=== PATIENT | male | born 1975 | race Caucasian/White ===

== ENCOUNTER 2022-02-28 08:26 | Outpatient (CLI) | payer OTHER, SELFPAY ==
--- NOTE | ~2022-02-28 | XR_ITS ---
XR shoulder LT min 2V DATE: 02/28/2022 08:43 INDICATION: Left shoulder pain. No injury. TECHNIQUE: 4 views COMPARISON: None FINDINGS: No fracture or dislocation, periosteal reaction or bone destruction or abnormal soft tissue calcification. Normal alignment at the acromioclavicular and glenohumeral joints. IMPRESSION: Negative Reviewed, dictated and finalized at location B. IMPRESSION: Negative
== END 2022-02-28 08:27 | disposition home or self-care (01) ==
PROVIDERS: PCP Internal Medicine; Visit Provider Internal Medicine
DX: M25.512 Pain in left shoulder (principal)
CPT/HCPCS: 73030

== ENCOUNTER 2023-12-30 09:34 | Outpatient (CLI) | payer OTHER, SELFPAY ==
[2024-01-26 18:25] VITALS: BMI 33.5
--- NOTE | 2024-01-26 18:25 | WPDSLEEPSTUD ---
Sleep Study Date of Study: 12/30/23 Ordering Provider: Forrest Smith APRN Interpreting Physician: Karlene Haas DO Sleep Study Type: Polysomnogram Height: 1.8 m Weight: 108.862 kg Body Mass Index: 33.5 Neck Circumference (inches): 18 Hendricks: 6 Reason for Sleep Study Snoring, morning headaches Sleep History The patient is a 48-year-old male that had a sleep study ordered by his primary care for evaluation of sleep apnea. The patient denies awakening from sleep short of breath. He denies awakening at night with heartburn, belching or cough. He frequently snores and is frequently loud enough that others complain. He rarely has trouble sleeping when he has a cold. He denies waking up gasping for air throughout the night. He occasionally has breathing problems at night observed by himself or others. He rarely sweats excessively at night. He denies having heart palpitations or irregular heartbeats during the night. He denies falling asleep during the day and while driving. He denies sleep paralysis, cataplexy and hypnagogic / hypnopompic hallucinations. He occasionally has trouble at school or work due to sleepiness. He denies feeling afraid of going to sleep. He denies having nightmares. He occasionally remembers his dreams. He rarely feels sad, depressed or anxious. He rarely has muscular tension. He occasionally notices parts of his body jerk. He occasionally kicks during the night. He denies having crawling and aching feelings in his legs and denies having leg pain during the night. He denies grinding his teeth during sleep and denies awakening with morning jaw pain. He denies being bothered by pain during the day and denies being awakened by pain during the night. He rarely wakes up feeling stiff in the morning. He rarely wakes up with sore or achy muscles. He rarely wakes up with pain in the neck, spine and other joints. He goes to bed at 9:30 p.m. on weekdays and between 10 to 10:30 p.m. on the weekends. He is able to fall asleep relatively quickly most nights. He wakes up once at most to urinate and is able to fall back asleep within a few minutes. He wakes up at 5:00 a.m. on weekdays and at 7:00 a.m. on the weekends. He typically gets 6.5-7 hours of sleep per night. He does not stay in bed after waking up in the morning. He currently lives with his and adult child. He denies consuming any caffeinated beverages within 2 hours of bedtime. He denies engaging in physical exercise before bedtime. He will watch television before falling asleep. He denies taking naps in the afternoon or the evening. He consumes 3 caffeinated beverages per day. He consumes 1 alcoholic beverage per day. He denies tobacco and recreational drug use. [facility]LY [facility] Past Medical History Medical History Asthma History of COVID-19 History of gastric ulcer Family History Family History Mother Hypertension Father Hypertension Family history of diabetes mellitus in first degree relative History of CVA (cerebrovascular accident) Sibling Asthma Diabetes mellitus Hypertension Grandparent Cancer Hypertension Grandparent Cancer Hypertension Heart problem Social History Social History Smoking status: Never smoker Second hand tobacco smoke exposure: Yes Alcohol intake: current Drinks per week: 2 Substance use: never Substance use type: does not use Lack of Transportation: No Lack of Food: Never True Current Housing: I Have Housing Concerned About Future Housing: No Difficulty Paying Gas/Electric Bills: No Difficulty Paying for Meds: No Currently Unemployed: No Education: Bachelor's Degree Difficulty w/ Childcare or Family Care: No Living arrangements: with family Occupation/Education: occupation Gender ident
== END 2023-12-31 06:02 | disposition home or self-care (01) ==
LOC: ANHCSM 09:35
PROVIDERS: PCP Nurse Practitioner; Visit Provider Nurse Practitioner
DX: G47.10 Hypersomnia, unspecified (principal); G47.33 Obstructive sleep apnea (adult) (pediatric)
CPT/HCPCS: 95810

== ENCOUNTER 2025-06-23 01:56 | Day surgery (SDC) | payer OTHER, SELFPAY ==
[2025-06-01 14:42] VITALS: BMI 34.1
--- OUTSIDE RECORDS SUMMARY | 2025-06-23 01:58 | XMS_ITS | Clinical Summary ---
Author Organization 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
[2025-06-23 08:08] VITALS: BP 144/92; PULSE 87; RESP 20; TEMP 36.2; O2SAT 100
[2025-06-23] MEDS: LACTATED RINGERS 1,000 ML 150 ML IV CONT (08:29)
--- NOTE | 2025-06-23 08:53 | WPDANESEPPF ---
Anes - Initial Pre Proc Eval Procedure: Operation Date: 06/23/25 09:30 Proposed Procedures p Screening Colonoscopy - Terry Anaya MD Date/Time: 06/23/25 08:53 Surgeon: Terry Anaya MD Pre Op Diagnosis: screening Patient Data Age: 49 Gender: M Height: 1.8 m Weight: 109 kg Last Vital Signs Temp 97.1 F L 06/23/25 08:08 Pulse 87 06/23/25 08:08 Resp 20 06/23/25 08:08 BP 144/92 H 06/23/25 08:08 Pulse Ox 100 06/23/25 08:08 O2 Del Method Room Air 06/23/25 08:08 Allergies Allergy/AdvReac Type Severity Reaction Status Date / Time cefuroxime Allergy Severe Rash Verified 06/23/25 08:06 Home Medications ?Medication ?Instructions ?Recorded ?Confirmed ?Type multivitamin (Daily Multi-Vitamin 1 tablet PO DAILY 02/26/21 06/23/25 History tablet) omega 5-hrx-rqu-fish oil 1,200 mg 1 cap PO DAILY 02/26/21 06/23/25 History (144 mg-216 mg) capsule (Fish Oil) Vitamin C + Zinc PO 10/25/24 10/25/24 History cetirizine 10 mg tablet 10 mg PO DAILY 10/25/24 06/23/25 History sodium sul 1.479 gram-potas ch See Rx Instructions PO PER PKG DIR 04/19/25 06/23/25 Rx 0.188 gram-magnes sul 0.225 gram #24 tabs tablet (Sutab) sodium sul 1.479 gram-potas ch See Rx Instructions PO PER PKG DIR 06/09/25 06/23/25 Rx 0.188 gram-magnes sul 0.225 gram #24 tabs tablet (Sutab) Patient hx anesthesia problems: none Family hx anesthesia problems: none Results Review: All pre-operative results and documents have been reviewed as part of the pre-operative evaluation. [facility] Past Medical History Medical History History of gastric ulcer Asthma History of COVID-19 Family History Family History Mother Hypertension Father Hypertension Family history of diabetes mellitus in first degree relative History of CVA (cerebrovascular accident) Sibling Asthma Diabetes mellitus Hypertension Grandparent Cancer Hypertension Heart problem Social History Social History Smoking status: Never smoker Second hand tobacco smoke exposure: Yes Alcohol intake: current Drinks per week: 3 Substance use: never Substance use type: does not use Lack of Transportation: No Lack of Food: Never True Current Housing: I Have Housing Concerned About Future Housing: No Difficulty Paying Gas/Electric Bills: No Difficulty Paying for Meds: No Currently Unemployed: No Education: Bachelor's Degree Difficulty w/ Childcare or Family Care: No Living arrangements: with family Occupation/Education: occupation 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 Gender identity (if verbalized by the patient): Male Sexual Orientation (if Verbalized by the Patient): Straight or Heterosexual Spiritual care concerns: No Anes - Eval Final PreProcedure Day of Procedure 06/23/25 08:53 Patient weight: obese Lungs: normal air movement Airway: Mallampati scale class II Neurological: alert and oriented Last oral intake: >/= 8 hours ASA classification: II Emergent: no Anesthetic plan: proceed Anesthesia type and monitoring: general GIVS and standard monitoring Results Review: All pre-operative results and documents have been reviewed as part of the pre-operative evaluation. ROBERT overall good functional status, no cp or sob w 1-2 fos. Informed Consent: The patient's anesthetic plan and its attendant risks and benefits were discussed with the patient/family/POA. Questions were solicited and answers provided to the satisfaction of the patient/family/POA.
--- NOTE | 2025-06-23 09:10 | PM.IMHP2 ---
H&P: HPI History of Present Illness Date/Time: 06/23/25 09:10 Chief Complaint: Screening colonoscopy Narrative: This is the patient's first colonoscopy. There are no GI symptoms and there is no family history of colorectal cancer. Review of Systems Review of Systems: All systems reviewed & are unremarkable except as noted in HPI and below PMFSH Past Medical History Medical History History of gastric ulcer Asthma History of COVID-19 Family History Family History Mother Hypertension Father Hypertension Family history of diabetes mellitus in first degree relative History of CVA (cerebrovascular accident) Sibling Asthma Diabetes mellitus Hypertension Grandparent Cancer Hypertension Heart problem Social History Social History Smoking status: Never smoker Second hand tobacco smoke exposure: Yes Alcohol intake: current Drinks per week: 3 Substance use: never Substance use type: does not use Lack of Transportation: No Lack of Food: Never True Current Housing: I Have Housing Concerned About Future Housing: No Difficulty Paying Gas/Electric Bills: No Difficulty Paying for Meds: No Currently Unemployed: No Education: Bachelor's Degree Difficulty w/ Childcare or Family Care: No Living arrangements: with family Occupation/Education: occupation 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 Gender identity (if verbalized by the patient): Male Sexual Orientation (if Verbalized by the Patient): Straight or Heterosexual Spiritual care concerns: No Meds Home Medications and Allergies Home Medications ?Medication ?Instructions ?Recorded ?Confirmed ?Type multivitamin (Daily Multi-Vitamin 1 tablet PO DAILY 02/26/21 06/23/25 History tablet) omega 9-ytk-hbw-fish oil 1,200 mg 1 cap PO DAILY 02/26/21 06/23/25 History (144 mg-216 mg) capsule (Fish Oil) Vitamin C + Zinc PO 10/25/24 10/25/24 History cetirizine 10 mg tablet 10 mg PO DAILY 10/25/24 06/23/25 History sodium sul 1.479 gram-potas ch See Rx Instructions PO PER PKG DIR 04/19/25 06/23/25 Rx 0.188 gram-magnes sul 0.225 gram #24 tabs tablet (Sutab) sodium sul 1.479 gram-potas ch See Rx Instructions PO PER PKG DIR 06/09/25 06/23/25 Rx 0.188 gram-magnes sul 0.225 gram #24 tabs tablet (Sutab) Allergies Allergy/AdvReac Type Severity Reaction Status Date / Time cefuroxime Allergy Severe Rash Verified 06/23/25 08:06 Vital Signs Vital Signs - 24 hr 06/23/25 08:08 Temperature 97.1 F L Pulse Rate 87 Respiratory Rate 20 Blood Pressure 144/92 H Pulse Oximetry 100 Oxygen Delivery Room Air Exam Const: General: cooperative and healthy appearing Resp: Effort & Inspection: normal respiratory effort and able to speak in complete sentences Auscultation: clear to auscultation bilaterally Cardio: Rate: regular rate Rhythm: regular rhythm GI: Inspection: normal to inspection GI Palp: No No hepatosplenomegaly present Auscultation: normal bowel sounds Rectal Exam: deferred Skin: General skin exam: normal color Psych: Appearance: grossly normal Mental Status: mental status grossly normal Assessment and Plan Assessment and plan (1) Screening for colon cancer: Code(s): Z12.11 - Encounter for screening for malignant neoplasm of colon Status: Acute Assessment and Plan: The patient is deemed a good candidate for the procedure. Consent signed. Will proceed. Prior Studies I have reviewed the following patient records and this information was taken into consideration when formulating the assessment and plan.: previous labs, previous ER visits, previous hospitalizations and previous clinic visits
[2025-06-23 09:26] VITALS: BP 117/78; PULSE 68; RESP 22; O2SAT 99
[2025-06-23 09:36] VITALS: BP 121/85; PULSE 63; RESP 17; O2SAT 98
[2025-06-23 09:46] VITALS: BP 140/90; PULSE 60; RESP 22; O2SAT 99
== END 2025-06-23 09:50 | disposition home or self-care (01) ==
PROVIDERS: PCP Nurse Practitioner; Referring Provider Nurse Practitioner; Visit Provider Internal Medicine Gastroenterology
PROC: 0DJD8ZZ Inspection of Lower Intestinal Tract, Via Natural or Artificial Opening Endoscopic (ICD-10-PCS; CPT 45378; principal; 2025-06-23 09:30)
DX: Z12.11 Encounter for screening for malignant neoplasm of colon (principal); K64.8 Other hemorrhoids; J45.909 Unspecified asthma, uncomplicated; G47.33 Obstructive sleep apnea (adult) (pediatric); E66.9 Obesity, unspecified; Z68.33 Body mass index [BMI] 33.0-33.9, adult; Z87.11 Personal history of peptic ulcer disease; Z80.9 Family history of malignant neoplasm, unspecified; Z82.49 Family history of ischemic heart disease and other diseases of the circulatory system
CPT/HCPCS: 45378; J2003; J2704; J7120